=== PATIENT | female | born 2000 | race Caucasian/White ===

== ENCOUNTER 2024-10-11 09:43 | Emergency (ER) | payer OTHER ==
[~2024-10-11] VITALS: Ht 162.6 cm; Wt 58.0 kg
[2024-10-11] MEDS ORDERED: FLUOXETINE HCL10 MG PO (09:58)
[2024-10-11] MEDS ORDERED: TETRACAINE HCL 0.5% 4 ML BTL OD SCH (10:15)
[2024-10-11] MEDS ORDERED: FLUORESCEIN SOD 1 EA STRP OD ONE (10:15)
[2024-10-11] MEDS ORDERED: DIPHTH,PERTUSS(ACELL),TET VAC 0.5 ML SYRINGE IM ONE (10:30)
[2024-10-11] MEDS ORDERED: ERYTHROMYCIN 1 GM TUBE OD ONE (10:30)
[2024-10-11 10:55] VITALS: BP 109/76
== END 2024-10-11 11:35 | disposition home or self-care (01) ==
LOC: ED 09:43
DX: S05.91XA Unspecified injury of right eye and orbit, initial encounter (principal); X58.XXXA Exposure to other specified factors, initial encounter
CPT/HCPCS: 90471; 90715; 99283-25